=== PATIENT | female | born 1940 | race Caucasian/White ===

== ENCOUNTER 2023-11-28 10:41 | Inpatient (IN) | payer MEDICARE, BC, SELFPAY ==
[2023-11-24 12:45] VITALS: BP 140/129
[2023-11-24 12:49] VITALS: BMI 30.7
[2023-11-24 13:22] LABS: % Basophils 0.1 % (0-2); % Eosinophils 0.1 % (0-6); % Immature Granulocytes 0.6 % (0-0.5); % Lymphocytes 12.5 % (20.5-51.1); % Monocytes 7.9 % (1.7-9.3); % Neutrophils 78.8 % (42.2-75.2); Absolute Lymphocytes 0.9 10^3/uL (1.2-3.4); Absolute Monocytes 0.6 10^3/uL (0.1-0.6); Absolute Neutrophils 5.7 10^3/uL (1.4-6.5); Hematocrit 35.6 % (37.0-47.0); Hemoglobin 12.2 g/dL (12.0-16.0); Mean Corp Hgb Conc. 34.3 g/dL (33.0-37.0); Mean Corpuscular Hgb 33.7 pg (27.0-31.0); Mean Corpuscular Volume 98.3 fL (81.0-99.0); Nucleated Red Blood Cells % 0 %; Platelet Count 193 10^3/uL (130-400); Red Blood Cell Count 3.62 10^6/uL (4.20-5.40); Red Cell Dist. Width 12.9 % (11.5-14.5); White Blood Cell Count 7.2 10^3/uL (4.8-10.8)
[2023-11-24 13:26] VITALS: BP 148/66
[2023-11-24 13:28] LABS: ALT (SGPT) 29 U/L (0-35); AST (SGOT) 49 U/L (14-36); Albumin 3.7 g/dl (3.5-5.0); Alkaline Phosphatase 80 U/L (38-126); Blood Urea Nitrogen 25 mg/dl (7-17); Calcium 8.9 mg/dl (8.4-10.2); Carbon Dioxide 27 mmol/L (22-30); Chloride 105 mmol/L (98-107); Estimated Creatinine Clearance 75 ml/min; Glucose 146 mg/dl (70-99); Potassium 3.7 mmol/L (3.5-5.1); Sodium 139 mmol/L (135-145); Total Bilirubin 0.9 mg/dl (0.2-1.3); Total Protein 6.2 g/dl (6.3-8.2); eGFR > 60.00
[2023-11-24 13:31] LABS: Urine Albumin Trace (Neg - Trace); Urine Bilirubin Negative (Negative); Urine Character Clear (Clear); Urine Color Yellow; Urine Glucose Negative (Negative); Urine Ketone 3+ (Negative); Urine Leukocyte Negative (Negative); Urine Nitrite Negative (Negative); Urine Occult Blood Negative (Negative); Urine Urobilinogen Negative (Neg - 1+)
--- NOTE | 2023-11-24 13:32 | PHANOTE ---
med rec note- patient currently does not have any ecw or pharmacy fills.
[2023-11-24 14:00] VITALS: BP 153/48
--- NOTE | 2023-11-24 14:00 | ED.GENMED ---
History of Present Illness
General
Chief Complaint: Social Service Referral
Source: patient
Time Seen by Provider: 11/24/23 13:35
History of Present Illness
History of Present Illness:
83-year-old female presents to the emergency room via ambulance. Patient has been having frequent falls at home. She is here with her son. Son states the patient has been having a decline in mental acuity over the past several years. Patient
lives with her who is 90. He has been having difficulty caring for the patient because he is not strong enough to pick her up when she falls but also because she becomes combative and uncooperative with what he tries to do to help her. In
addition given his age he is having issues just taking care of himself. Patient offers no complaints. Ambulance states the house is in poor condition. The patient is extremely disheveled. She seems unaware that she has poor hygiene. Patient
denies having any falls.
Phy Exam
Physical Exam
Physical Exam:
General: Awake, Alert, Oriented X1. Clearly confused. Disheveled with her hair matted with what appears to be stool and dirt
Vitals: Afebrile, normotensive
Head: Atraumatic
Eyes: Pupils equal, EOMI
Throat: Airway intact, no exudates, dry mucosa
Neck: Trachea midline
Lungs: Clear and equal b/l
Heart: Regular rate, no murmurs
Abd: Soft, Nontender, No pulsatile mass
Neuro: Nonfocal
Skin: Warm, dry, no rash multiple abrasions and skin tears in various stages of healing
Extremities: pulses equal b/l, 1+ edema
Course
Orders/Labs/Results
Orders:
Orders
11/24/23 12:41
Electrocardiogram (*1) Urgent
Reason for Study: Fatigue / Weakness
EKG- Treatment ONCE
11/24/23 12:50
Complete Blood Count/With Diff Urgent
Comprehensive Metabolic Panel Urgent
Urinalysis Reflex To Culture Urgent
Date Specimen was Collected: 11/24/23
Time Specimen was Collected: 12:41
11/24/23 14:00
CT Head W/o Iv Contrast Urgent
Comment:
Reason For Exam: altered mental status
Case Management Consult ONCE
Case Management Consult: Discharge Planning
11/24/23 14:01
Knee, Left 4 or More Views [CR Knee - Left 4 Or More View*] Urgent
Comment:
Reason For Exam: pain from fall
11/24/23 15:32
Knee Immobilizer Left-Treatmen ONCE
11/24/23 15:36
Ankle, left 3 view CR [CR Ankle - Left Min 3 Views ] Urgent
Comment:
Reason For Exam: pain after a fall
Tibia/Fibula, Left 2 View [CR Leg Tibia/fibula Left 2 Vw] Urgent
Comment:
Reason For Exam: left knee and leg pain
Abnormal Lab Results
11/24/23
12:50
RBC 3.62 L 10^6/uL
(4.20-5.40)
Hct 35.6 L %
(37.0-47.0)
MCH 33.7 H pg
(27.0-31.0)
Absolute Lymphs (auto) 0.9 L 10^3/uL
(1.2-3.4)
Immature Gran % 0.6 H %
(0-0.5)
Neutrophils % 78.8 H %
(42.2-75.2)
Lymphocytes % 12.5 L %
(20.5-51.1)
BUN 25 H mg/dl
(7-17)
Glucose 146 H mg/dl
(70-99)
AST 49 H U/L
(14-36)
Total Protein 6.2 L g/dl
(6.3-8.2)
Urine Ketones 3+ A
(Negative)
11/24/23 12:50
11/24/23 12:50
Vital Signs
Initial and Last Documented VS:
Initial Vital Signs
Pulse Resp
86 14
11/24/23 12:41 11/24/23 12:41
Last Documented Vital Signs
Temp Pulse Resp BP Pulse Ox
98.3 F 77 16 151/68 96
11/24/23 12:45 11/24/23 15:45 11/24/23 15:45 11/24/23 15:00 11/24/23 15:45
MDM/Problems Addressed
Differential Diagnosis Includes:
Progression of dementia, urinary tract infection, hyponatremia, renal failure
MDM/Problems Addressed:
Patient presents very disheveled, confused. Neuroexam is nonfocal. Her labs did not show any real significant abnormalities. She is somewhat dry. Urine shows positive ketones but no evidence for urinary tract infection. CT of the head shows
atrophy. Patient was complaining of knee pain earlier but for me she denied any pain. Knee films were obtained for this reason which shows a proximal fibular fracture. Remaining views of the left lower extremity did not reveal any fracture.
Patient be placed in a knee immobilizer. She will require hospitalization as she is nonambulatory at this point with the knee immobilizer but also because she is unable to care for herself and her is no longer able to care for her. She
will need case management consultation for disposition planning
*Radiology
Radiology exam reviewed: preliminary read by ED provider (Proximal fibular fracture noted on my review of the patient's knee x-ray. Remaining tib-fib and ankle appear negative in my estimation) and radiology read reviewed (CT report)
*Pulse Oximetry
Patient hypoxic: no
*EKG
Interpreted by ED Provider?: Yes
Heart Rate: 85
Rate: normal
Rhythm: sinus
[place]: normal axis
Interval: normal interval
QRS Pattern: normal QRS
Ischemia: no ischemia
*Supervisor Packing Interpretation
Rate: normal
Interpretation: normal
Rhythm: sinus
*Critical Care Note
Total Time (30-74mins, 75-104mins- exclusive of procedures): Not Applicable
ED Attending Note
-
Portions of this chart may have been created with voice recognition software.� Occasional wrong word or��sound alike� substitutions may have occurred due to the inherent limitations of voice recognition software.
Discharge Plan
Departure
Patient Disposition: Admit
Date of Disposition: 11/24/23
Time of Disposition: 16:20
Admit to: Med/Surg
Presentation/result/management discussed w/ accepting MD/DO: Hospitalist
Condition: Fair
Discharge Problem:
Fracture of proximal end of fibula, Frequent falls, Acute confusion
Referrals:
Akira Orlando MD [Family Provider] -
Interventions
Interventions:
*Risk Screen - Suicide Last Done: 11/24/23 12:48
*General Assessment Last Done: 11/24/23 12:46
*Neglect/Abuse Screening Last Done: 11/24/23 12:48
ED- Fall Risk Assessment Last Done: 11/24/23 12:48
ED-Psychological Assessment Last Done: 11/24/23 12:51
Discharge Date and Time
Print Language: RUSSIAN
[2023-11-24 15:00] VITALS: BP 151/68
--- NOTE | 2023-11-24 16:17 | CM ---
CM following re: d/c planning.
Pt presents to ER after a fall.
pt is disheveled and situation at home is questionable.
CM met with pt, son Soren [phone] and his girlfriend at bedside.
Pt with matted hair.
She is able to converse with CM, appropriately so.
However, she states she walks with a walker, is able to shower herself, gets meals prepared, etc.
Later, son requested to see CM in the almaraz.
He states pt resides with spouse, who is 90 y/o. There is also his disabled sister in the home.
His father, he states, is the primary caregiver for both of them.
He states pt barely walks and is very sedentary. She does not take care of her hygiene needs.
He states father is trying to do it all, but overwhelmed.
Pt with dementia, son believes it is progressing.
He states his sister used to go to the program at [facility], but after COVID, it was shut down.
She also has a sedentary lifestyle.
He states he resides in the [facility], so he does not see his parents often.
He does state that pt is very difficult, uncooperative, and easily agitated, so they walk on eggshells around her.
He states she acts like everything is fine and becomes defensive when they tell her otherwise, or make suggestions.
She has not been to a doctor in a while.
He states his father called him today crying, as he is very overwhelmed.
CM acknowledged that it is a big step to bring her to the ER, as she did not want to come initially.
We spoke about pt being admitted (per MD), then likely could be placed in rehab.
We also talked about the waiver program. Pt gets SS, spouse receives SS and pension. Perhaps, they may qualify for waiver.
CM will continue to follow for d/c planning.
Goal: placement.
Of note, there is a son who lives locally, [place] [phone].
At this time, as there is no intentional abuse or neglect, no report made to APS.
CM will assist with dispo and caregiver support.
--- NOTE | 2023-11-24 17:40 | HPS.HSE ---
Family Physician
-
Family Physician: Akira Orlando
Chief Complaint
-
Fall, left fibular fracture, ambulatory dysfunction
History of Present Illness
This is an 83-year-old female with past medical history of hypertension and dementia who presents to the emergency department after suffering a fall at home and found to have a nondisplaced left fibular fracture.
Patient unable to provide any history. She is sleeping at the time of interview. Family reports a history of progressive dementia and intermittent agitation and combativeness. They only reported history of hypertension. They report that over the
last few years the patient has been suffering from multiple falls and in recent weeks has had several falls occurring per week. The patient lives with spouse who is 90 years old and is unable to care for her. She is found disheveled with matted he
had COVID in stool. Patient seems to be incapable of understanding the condition. When she follows she cannot be helped by spouse. There to other family members who also hold her and unable to help with transfers. Patient has refused
hospitalizations and medical care in the past. Last contact with healthcare providers was during COVID and having the COVID vaccination.
In the ED today she was normotensive with a blood pressure of 151/68 pulse of 77 respiratory of 16 and she was satting 98% on room air. She was afebrile. ECG showed normal sinus rhythm at a rate of [address] of the head was
unremarkable. X-ray of the left knee shows the nondisplaced oblique fracture of the proximal fibular metaphysis and diaphysis. CBC was unremarkable with no leukocytosis and a hemoglobin of 12 normal platelet count. Electrolytes are all within
normal limits. Blood glucose was normal. UA showed 3+ ketones but otherwise unremarkable.
Patient was evaluated by care management with plans for SNF. Unfortunately this cannot be accomplished during the current day and patient was referred for admission.
Medical History
Past Medical History
Past Medical History: Reports Dementia and HTN
Past Surgical History: Reports None
Social History
Unable to obtain full social history at this time due to: Dementia
Tobacco: Non-smoker
Alcohol: None
Drug: None
Personal:
Living: With Family
Employment: Retired
Family History
Family History: Not pertinent
Allergies / Home Medications
Allergies reflects when Allergies were last updated in [facility].
Home Medications with original date entered in [facility]
Allergy/Medication List:
Allergies
Allergy/AdvReac Type Severity Reaction Status Date / Time
No Known Allergies Allergy Unverified 11/24/23 13:23
If medication reconciliation has not been performed, why?: Dementia and Medication List N/A
Review of Systems
-
Unable to obtain full review of systems at this time due to: Dementia
History Source: Family
Constitutional: Reports No Symptoms
EENT: Reports No Symptoms
Respiratory: Reports No Symptoms
Cardiac: Reports No Symptoms
Abdomen/GI: Reports No Symptoms
: Reports No Symptoms
Musculoskeletal: Reports No Symptoms
Skin: Reports No Symptoms
Neurological: Reports No Symptoms
Endocrine: Reports No Symptoms
Hematologic/Lymphatic: Reports No Symptoms
Psych: Reports No Symptoms
Physical Exam
Vital Signs
Vital Signs
Temp Pulse Resp BP Pulse Ox
98.3 F 77 16 151/68 96
11/24/23 12:45 11/24/23 15:45 11/24/23 15:45 11/24/23 15:00 11/24/23 15:45
Physical Exam
General: No Apparent Distress
HEENT: NormoCephalic, Anicteric, Moist mucous membranes, Atraumatic and PERRLA
Respiratory: Clear
Cardiac: S1/S2 and Regular Rhythm
Breast: Deferred by me
GI: Soft, Non Tender and Non Distended
Rectal: Deferred by Provider
Genito-urinary: Deferred by me
Musculoskeletal: No Clubbing, No Cyanosis and No Edema
Skin: Dry
Neuro: Nonfocal/grossly intact, Sedated and Other (sleepy but arousable. )
Hematologic/Lymphatic: No Lymphadenopathy
Psych: Calm
Laboratory Results
-
11/24/23 12:50
11/24/23 12:50
Laboratory Results
Total Bilirubin 0.9 mg/dl (0.2-1.3) 11/24/23 12:50
AST 49 U/L (14-36) H 11/24/23 12:50
ALT 29 U/L (0-35) 11/24/23 12:50
Alkaline Phosphatase 80 U/L (38-126) 11/24/23 12:50
Data Reviewed
-
Diagnostic Radiology: Image Personally Visualized and interpreted
CT Scan: Report Reviewed by me
Medical Tests (Nuc Med, Echo, EKG etc): Image Personally Visualized and interpreted
Lab Data: Labs Reviewed by me
Impression/Plan
-
IMPRESSION:
PLAN:
1. Left Fibular Fracture - H/O multiple falls at home. Ambulatory dysfunction. Left fibular fracture, non-displaced, uncertain duration.
- admit to obs
- pain control
- no indication for surgery
- knee immobilization
- PT and eval for weight bearing
- case management consult.
2. HTN -
- continue atenolol 50 daily
3. Dementia - progressive dementia with behavioral changes and no insight.
- outpatient neuro, may need dementia unit
- gentle redirection found to be effective per family
- monitor for delirium
DVT PPX - lovenox sq
Code status - Full Code. Family to discuss with spouse who cannot communicate over the phone then determine if this needs to change.
--- NOTE | 2023-11-24 20:50 | PTCARENOTE ---
Pt received from ED via stretcher. Pulled over to bed x4 without incident. AAOx1, forgetful/anxious/agitated with care. Disheveled unkempt appearance, long shoulder length hair severely matted, necklace and earrings caked. Unable to participate
in admission questions and pt's Soren already left. Physical assessment completed (refer to worklist). LLE immobilizer in place. Static overlay and bed alarm placed. MASD noted to bilateral breasts, groin. Miconazole powder ordered per wound
protocol. Call belcher within reach, instructed on use. Plan of care ongoing.
[2023-11-24] MEDS: LOVENOX 40 MG SC (22:30)
[2023-11-24 22:40] VITALS: BP 153/96
--- NOTE | 2023-11-24 23:50 | PTCARENOTE ---
Phone call placed to patient's and son. No answer at either number. Pt's son Soren returned call. Discussed cutting mother's hair as attempts to cleanse impossible. Pt reports washing hair and bathing independently Soren verbally
consented to allowing myself to cut mother's hair. Consent witnessed by Bia Ordoñez RN. Scow Captain made aware that verbal consent obtained. Pt's son expressed gratitude repeatedly.
Pt given complete bed bath, hair cut short and washed x2. Necklace and earrings removed and soaked. Sacral foam placed, bilateral heel foams placed. Pt thankful for all care provided.
[2023-11-25 03:20] VITALS: BP 148/86
[2023-11-25 07:00] VITALS: BP 135/87
--- NOTE | 2023-11-25 07:33 | W.PN.HOSP.TC ---
Today's Communication/Plan
-
knee immobilization
pain control, avoid opiates
PT/OT
discharge planning SNF rehab
Assessment / Plan
Assessment / Plan
Physical Exam
General: No Apparent Distress
HEENT: NormoCephalic, Anicteric, Moist mucous membranes, Atraumatic and PERRLA Hard of Hearing
Respiratory: Clear
Cardiac: S1/S2 and Regular Rhythm
GI: Soft, Non Tender and Non Distended
Musculoskeletal: No Clubbing, No Cyanosis and No Edema
Skin: Dry
Neuro: Awake alert conversant
Hematologic/Lymphatic: No Lymphadenopathy
Psych: Calm
83F HTN Dementia Falls here w/ left fibular fx
# Left acute nondisplaced oblique fracture proximal metaphysis and diaphysis of the fibula
- H/O multiple falls at home. Ambulatory dysfunction
- pain control
- Ortho eval appreciated outpt ortho follow up Ortho 4 wks for repeat X-rays, knee immobilization, WBAT as tolerated
- PT/OT eval appreciated SNF rehab
- case management consult.
# HTN -
- continue atenolol 50 daily
# Dementia - progressive dementia with behavioral changes and no insight.
- outpatient neuro, may need dementia unit
- gentle redirection found to be effective per family
- monitor for delirium
DVT PPX - lovenox sq
Full Code
I spent a total of 40 minutes with the patient or on the floor. More than 50% of this time involved counseling and coordination of care.
Anticipated Discharge: 24 - 48 hours
Subjective/Interval History
-
Date of Service: November 25, 2023
Calm pleasant. no acute distress. Appears comfortable at this time. Hard of hearing
Objective Data
-
Vital Signs:
Vital Signs
Temp Pulse Resp BP Pulse Ox
98.2 F 112 17 148/86 93
11/25/23 03:20 07/22/24 03:20 11/25/23 03:20 11/25/23 03:20 11/25/23 03:20
I&O
11/24/23 11/25/23 11/26/23
06:59 06:59 06:59
Intake Total 100 / 100
Balance 100 / 100
--- NOTE | 2023-11-25 08:50 | CON.ORTHO ---
Consultation
-
Date/Time Consultation Requested: November 26/0717
Date/Time Consultation Performed: November 26/0800
Requesting Provider: Jeremy
Performing Provider: Lizabeth Hood
Reason for Consultation: Left fibula fracture
Consultation - Orthopedics
History
Dictation#[id number]
Asked to see this pleasant 83-year-old white female with a PMH of dementia and HTN who reportedly suffers from frequent falls at home. She lives with her 90-year-old who is her fur remodeler, as well as a fur remodeler for their disabled daughter.
Per family he has been overwhelmed and struggling recently with his caretaking responsibilities. Per EMS the house is in poor condition. Patient is disheveled. She presented through the ER after a fall and x-rays confirmed a nondisplaced left
proximal fibula fracture. X-rays of the ankle were negative. She was placed in a knee immobilizer. She has been admitted to the hospitalist service and we have been requested in consultation due to her fracture. Did not offer significantly
helpful answers to questions at the time of visit
Allergies / Home Medications
Allergy/AdvReac Type Severity Reaction Status Date / Time
No Known Allergies Allergy Unverified 11/24/23 13:23
Vital Signs / Lab Results
Temp Pulse Resp BP Pulse Ox
98.5 F 114 18 135/87 98
11/25/23 07:00 11/25/23 07:00 11/25/23 07:00 11/25/23 07:00 11/25/23 07:00
11/24/23 12:50
11/24/23 12:50
Assessment / Plan
PE: Afeb. In bed. KI in place LLE. Skin intact. Mild edema. Focal tenderness over the proximal fibula. no pain over the proximal tibia and does not endorse any pain to palpation of the knee. Evaluation of the ankle revealed no medial or lateral
pain, over the ligaments of the malleoli. no pain over the tib-fib ligament. and no pain over the syndesmosis. No pain over the Achilles. Ankle ranges well without significant pain. Calf is soft and nontender. DNGUILLE HUNTERE
Xrays: Nondisplaced left proximal fibula fracture. x-rays of the ankle without fracture or any other acute abnormality. No widening of the medial clear space.
Impression: LEFT proximal fibula fracture
Plan: I did discuss with the patient, but will also place a call to family, specifically her son, Soren. She seems to be more comfortable in the KI. we will continue with the KI. She may be WBAT with a walker/crutches, although walker probably
safer. While in bed the immobilizer may be loosened to elevate and ice, if tolerable. Avoid narcotics, please. PT/OT would be helpful during this admission. I would anticipate a D/c to SNF when medically optimized- appreciate CM. Recommend an
outpatient orthopedic follow-up in 4 weeks for x-rays. Orthopedics to sign off for now. Please reengage with any pertinent questions during the remainder of her admission, if necessary
[2023-11-25] MEDS: TYLENOL 650 MG PO (09:15)
[2023-11-25] MEDS: TENORMIN 50 MG PO (09:15)
[2023-11-25] MEDS: DESENEX/MITRAZOL/ZEASORB 1 APPLIC TOPICAL ×2 (09:16→20:34)
--- NOTE | 2023-11-25 10:00 | PTCARENOTE ---
pt awake oriented to self. follows commands yells out in pain when turned. pain med given. sacral foam in place. LLE immobilizer on pt. pulses present.
[2023-11-25 10:14] VITALS: BP 136/90; PULSE 107
[2023-11-25 15:00] VITALS: BP 124/53
[2023-11-25] MEDS: LOVENOX 40 MG SC (17:30)
[2023-11-25 23:00] VITALS: BP 112/94
[2023-11-26 06:00] VITALS: BMI 30.7
--- NOTE | 2023-11-26 07:10 | W.PN.HOSP.TC ---
Today's Communication/Plan
-
Medically stable for discharge pending SNF placement
cont PT/OT
Fall precautions
Assessment / Plan
Assessment / Plan
Physical Exam
General: No Apparent Distress
HEENT: NormoCephalic, Anicteric, Moist mucous membranes, Atraumatic and PERRLA Hard of Hearing
Respiratory: Clear
Cardiac: S1/S2 and Regular Rhythm
GI: Soft, Non Tender and Non Distended
Musculoskeletal: No Clubbing, No Cyanosis and No Edema
Skin: Dry
Neuro: AOx3 slow cognition
Hematologic/Lymphatic: No Lymphadenopathy
Psych: Calm
83F HTN Dementia Falls here w/ left fibular fx
# Left acute nondisplaced oblique fracture proximal metaphysis and diaphysis of the fibula
- H/O multiple falls at home. Ambulatory dysfunction
- pain control
- Ortho eval appreciated outpt ortho follow up Ortho 4 wks for repeat X-rays, knee immobilization, WBAT as tolerated
- PT/OT eval appreciated SNF rehab
- case management consult.
# HTN -
- continue atenolol 50 daily
# Dementia - progressive dementia with behavioral changes and no insight.
- outpatient neuro, may need dementia unit
- gentle redirection found to be effective per family
- monitor for delirium
DVT PPX - lovenox sq
Full Code
discussed with patient's son Soren over phone
I spent a total of 35 minutes with the patient or on the floor. More than 50% of this time involved counseling and coordination of care.
Anticipated Discharge: 24 - 48 hours
Subjective/Interval History
-
Date of Service: November 26, 2023
No acute distress. Calm pleasant at time of evaluation. AOx3 though cognition is slow.
Objective Data
-
Vital Signs:
Vital Signs
Temp Pulse Resp BP Pulse Ox
98.1 F 86 16 112/94 97
11/25/23 23:00 11/25/23 23:00 11/25/23 23:00 11/25/23 23:00 11/25/23 23:00
I&O
11/25/23 11/26/23 11/27/23
06:59 06:59 06:59
Intake Total 100 / 100
Balance 100 / 100
[2023-11-26 08:03] VITALS: BP 158/80
[2023-11-26] MEDS: DESENEX/MITRAZOL/ZEASORB 1 APPLIC TOPICAL ×2 (08:26→21:40)
[2023-11-26] MEDS: TENORMIN 50 MG PO (08:31)
[2023-11-26] MEDS: TYLENOL 650 MG PO (08:32)
--- NOTE | 2023-11-26 10:50 | PTCARENOTE ---
pt oriented to self. confused agitated she can not go home. does not understand current condition. left leg immobilizer in place. pulses present. room air.
[2023-11-26 12:08] VITALS: BP 134/85; PULSE 94; O2SAT 95
[2023-11-26 12:32] VITALS: BP 134/85; PULSE 94; O2SAT 95
--- NOTE | 2023-11-26 12:59 | PTCARENOTE ---
pt increasingly agitated. yelling out for family. wants to get out of bed to leave. unable to reorient pt. she insists she is leaving and does not have a broken leg. states she has no pain. comfort measures offered
[2023-11-26 15:00] VITALS: BP 158/69
--- NOTE | 2023-11-26 15:00 | CM ---
Spoke with pts to complete initial assessment
Pt lives at home with her and daughter in a split-level home
Per pt is forgetful. Feeds self, assist with adl's, ambulates without device and manages steps without difficulty
DME - none
SNF/HH - denies past hx
PCP - Dr Mann Orlando
Pharm - [facility]
Discussed [facility]
Discussed SNF/d/c planning - no preferences - 'Something near [place]'
Will send referral in [facility]
Plan - anticipate SNF at d/c will need auth
[2023-11-26] MEDS: LOVENOX 40 MG SC (18:01)
[2023-11-26 23:12] VITALS: BP 120/78
[2023-11-27 06:00] VITALS: BMI 30.5
[2023-11-27 07:00] VITALS: BP 170/79
--- NOTE | 2023-11-27 07:53 | W.PN.HOSP.TC ---
Today's Communication/Plan
-
Medically stable for discharge pending SNF placement
Assessment / Plan
Assessment / Plan
Physical Exam
General: No Apparent Distress
HEENT: NormoCephalic, Anicteric, Moist mucous membranes, Atraumatic and PERRLA Hard of Hearing
Respiratory: Clear
Cardiac: S1/S2 and Regular Rhythm
GI: Soft, Non Tender and Non Distended
Musculoskeletal: No Clubbing, No Cyanosis and No Edema
Skin: Dry
Neuro: AOx3 slow cognition
Hematologic/Lymphatic: No Lymphadenopathy
Psych: Calm
83F HTN Dementia Falls here w/ left fibular fx
# Left acute nondisplaced oblique fracture proximal metaphysis and diaphysis of the fibula
- H/O multiple falls at home. Ambulatory dysfunction
- pain control
- Ortho eval appreciated outpt ortho follow up Ortho 4 wks for repeat X-rays, knee immobilization, WBAT as tolerated
- PT/OT eval appreciated SNF rehab
- case management consult.
# HTN -
- continue atenolol 50 daily
# Dementia - progressive dementia with behavioral changes and no insight.
- outpatient neuro, may need dementia unit
- gentle redirection found to be effective per family
- monitor for delirium
DVT PPX - lovenox sq
Full Code
discussed with patient's son Soren over phone
I spent a total of 35 minutes with the patient or on the floor. More than 50% of this time involved counseling and coordination of care.
Anticipated Discharge: 24 - 48 hours
Subjective/Interval History
-
Date of Service: November 27, 2023
no acute distress comfortable calm pleasant
Objective Data
-
Vital Signs:
Vital Signs
Temp Pulse Resp BP Pulse Ox
98.9 F 81 18 120/78 94
11/26/23 23:12 11/26/23 23:12 11/26/23 23:12 11/26/23 23:12 11/26/23 23:12
I&O
11/26/23 11/27/23 11/28/23
06:59 06:59 06:59
Intake Total 360 / 360
Balance 360 / 360
[2023-11-27] MEDS: TENORMIN 50 MG PO (08:33)
[2023-11-27] MEDS: DESENEX/MITRAZOL/ZEASORB 1 APPLIC TOPICAL ×2 (08:34→20:16)
--- NOTE | 2023-11-27 13:34 | CM ---
Addendum entered by Maria Luisa Covington 11/27/23 15:33:
Met with son Jose Ramon and his SO at bedside. Updated on accepting facilities. Son reports he will share info with his father. Given list of facilities from [employer]. Encouraged to call/look at some facilities. Given CM phone number.
CM will follow up with son tomorrow.
Plan - SNF when bed obtained
Original Note:
Case management following for d/c planning
Chart reviewed
Pending placement - referrals sent
Plan - SNF when bed obtained
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
[2023-11-27] MEDS: LOVENOX 40 MG SC (17:11)
[2023-11-28 03:00] VITALS: BP 123/75
[2023-11-28 06:00] VITALS: BMI 30.4
--- NOTE | 2023-11-28 07:52 | W.PN.HOSP.TC ---
Today's Communication/Plan
-
Medically stable for discharge pending SNF rehab placement
Assessment / Plan
Assessment / Plan
Physical Exam
General: No Apparent Distress
HEENT: NormoCephalic, Anicteric, Moist mucous membranes, Atraumatic and PERRLA Hard of Hearing
Respiratory: Clear
Cardiac: S1/S2 and Regular Rhythm
GI: Soft, Non Tender and Non Distended
Musculoskeletal: No Clubbing, No Cyanosis and No Edema
Skin: Dry
Neuro: AOx3 slow cognition, memory issues noted
Hematologic/Lymphatic: No Lymphadenopathy
Psych: Calm
83F HTN Dementia Falls here w/ left fibular fx
# Left acute nondisplaced oblique fracture proximal metaphysis and diaphysis of the fibula
- H/O multiple falls at home. Ambulatory dysfunction
- pain control
- Ortho eval appreciated outpt ortho follow up Ortho 4 wks for repeat X-rays, knee immobilization, WBAT as tolerated
- PT/OT eval appreciated SNF rehab
- case management consult appreciated
# HTN -
- continue atenolol 50 daily
# Dementia - progressive dementia with behavioral changes and no insight.
- outpatient neuro, may need dementia unit
- gentle redirection found to be effective per family
- monitor for delirium
DVT PPX - lovenox sq
Full Code
I spent a total of 35 minutes with the patient or on the floor. More than 50% of this time involved counseling and coordination of care.
Anticipated Discharge: Within 24 hours
Subjective/Interval History
-
Date of Service: November 28, 2023
calm conversant has memory issues but largely pleasant and cooperative.
Objective Data
-
Vital Signs:
Vital Signs
Temp Pulse Resp BP Pulse Ox
98.5 F 85 18 123/75 99
11/28/23 03:00 11/28/23 03:00 11/28/23 03:00 11/28/23 03:00 11/28/23 03:00
I&O
11/27/23 11/28/23 11/29/23
06:59 06:59 06:59
Intake Total 360 / 360 500 / 500
Balance 360 / 360 500 / 500
[2023-11-28 07:54] VITALS: BP 162/78
[2023-11-28] MEDS: DESENEX/MITRAZOL/ZEASORB 1 APPLIC TOPICAL ×2 (08:45→19:54)
[2023-11-28] MEDS: TENORMIN 50 MG PO (08:45)
--- NOTE | 2023-11-28 10:09 | CM ---
Addendum entered by Maria Luisa Covington 11/28/23 15:14:
Received call from pts son - family would like to have pt got to [facility] for SNF
Messaged Mary at [facility] - can accept over weekend
Plan - anticipate transfer to [facility] when bed available
Original Note:
Case management following for d/c planning
Received call from pts son
Given update of accepting facilities
Reports he has been calling facilities and will notify CM of choices today
Plan - anticipate transfer to snf when facility and auth obtained
[2023-11-28 10:12] VITALS: BP 126/69; PULSE 78; O2SAT 99
[2023-11-28 15:38] VITALS: BP 159/102
[2023-11-28 16:15] VITALS: BP 152/81
[2023-11-28] MEDS: LOVENOX 40 MG SC (17:15)
[2023-11-28 23:21] VITALS: BP 157/93
[2023-11-29] MEDS: MOTRIN 400 MG PO (03:04)
[2023-11-29 06:00] VITALS: BMI 30.3
--- NOTE | 2023-11-29 07:06 | W.PN.HOSP.TC ---
Today's Communication/Plan
-
Medically stable for discharge pending SNF rehab placement insurance auth
Assessment / Plan
Assessment / Plan
Physical Exam
General: No Apparent Distress
HEENT: NormoCephalic, Anicteric, Moist mucous membranes, Atraumatic and PERRLA Hard of Hearing
Respiratory: Clear
Cardiac: S1/S2 and Regular Rhythm
GI: Soft, Non Tender and Non Distended
Musculoskeletal: No Clubbing, No Cyanosis and No Edema
Skin: Dry
Neuro: AOx3 slow cognition, memory issues noted
Hematologic/Lymphatic: No Lymphadenopathy
Psych: Calm
83F HTN Dementia Falls here w/ left fibular fx
# Left acute nondisplaced oblique fracture proximal metaphysis and diaphysis of the fibula
- H/O multiple falls at home. Ambulatory dysfunction
- pain control
- Ortho eval appreciated outpt ortho follow up Ortho 4 wks for repeat X-rays, knee immobilization, WBAT as tolerated
- PT/OT eval appreciated SNF rehab
- case management consult appreciated
# HTN -
- continue atenolol 50 daily
-25 mg Atenolol QPM added
# Dementia - progressive dementia with behavioral changes and no insight.
- outpatient neuro, may need dementia unit
- gentle redirection found to be effective per family
- monitor for delirium
#Mild Hyponatremia
Fluid restriction
DVT PPX - lovenox sq
Full Code
I spent a total of 35 minutes with the patient or on the floor. More than 50% of this time involved counseling and coordination of care.
Anticipated Discharge: Within 24 hours
Subjective/Interval History
-
Date of Service: November 29, 2023
no acute distress. Reports feeling tired otherwise appears comfortable at this time.
Objective Data
-
Vital Signs:
Vital Signs
Temp Pulse Resp BP Pulse Ox
98.6 F 114 20 157/93 98
11/28/23 23:21 11/28/23 23:21 11/28/23 23:21 11/28/23 23:21 11/28/23 23:21
I&O
11/28/23 11/29/23 11/30/23
06:59 06:59 06:59
Intake Total 500 / 500 900 / 900
Balance 500 / 500 900 / 900
[2023-11-29 08:39] LABS: Hematocrit 30.7 % (37.0-47.0); Mean Corp Hgb Conc. 35.8 g/dL (33.0-37.0); Mean Corpuscular Volume 92.2 fL (81.0-99.0); Mean Platelet Volume 8.4 fL (7.4-10.4); Platelet Count 221 10^3/uL (130-400); Red Blood Cell Count 3.33 10^6/uL (4.20-5.40); Red Cell Dist. Width 12.6 % (11.5-14.5); White Blood Cell Count 7.7 10^3/uL (4.8-10.8)
[2023-11-29] MEDS: DESENEX/MITRAZOL/ZEASORB 1 APPLIC TOPICAL ×2 (08:45→20:29)
[2023-11-29] MEDS: TENORMIN 50 MG PO (08:46)
[2023-11-29 09:05] VITALS: BP 141/71
[2023-11-29 09:24] LABS: ALT (SGPT) 24 U/L (0-35); AST (SGOT) 36 U/L (14-36); Albumin 2.7 g/dl (3.5-5.0); Alkaline Phosphatase 78 U/L (38-126); Blood Urea Nitrogen 12 mg/dl (7-17); Calcium 8.4 mg/dl (8.4-10.2); Carbon Dioxide 30 mmol/L (22-30); Chloride 97 mmol/L (98-107); Estimated Creatinine Clearance 74 ml/min; Glucose 121 mg/dl (70-99); Magnesium 1.8 mg/dl (1.6-2.3); Phosphorus 4.1 mg/dl (2.5-4.5); Potassium 3.8 mmol/L (3.5-5.1); Sodium 130 mmol/L (135-145); Total Bilirubin 0.7 mg/dl (0.2-1.3); eGFR > 60.00
--- NOTE | 2023-11-29 10:47 | PN.CDI ---
CDI
- -
CDI:
Physician Documentation Request
Admit Date: 11/28/23 10:41
Dear Doctor Jeremy
Please review the following and provide your response in the progress notes.
Clinical Indicators:
Laboratory Tests
11/24/23 11/29/23
12:50 08:31
Sodium 139 130 L
Based on the above and your clinical assessment, please clarify in the progress notes, the appropriate diagnosis, if significant, that supports the above abnormalities and additional evaluation, monitoring and/or treatment rendered:
Hyponatremia
Abnormal lab value, clinically insignificant
Other(please specify)
Use of terms such as suspected, likely, concern for, or probable (associated with a specific diagnosis that is being evaluated, monitored, or treated as if it exists) are acceptable and can be coded in the inpatient setting, when documented at the
time of discharge.
Thank you,
Obdulia Bingham RN BSN CCDS
CDI Specialist
Please contact via tiger text
Please use your independent medical judgment in providing your response.
--- NOTE | 2023-11-29 11:05 | PN.CDI ---
CDI
- -
CDI:
Physician Documentation Request
Admit Date: 11/28/23 10:41
Dear Doctor Jeremy,
Please review the following and provide your response in the progress notes.
Clinical Indicators:
11/23 Exams: CR Knee - Left
#Acute nondisplaced oblique fracture of the proximal fibular metaphysis and diaphysis
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
PN, 11/27
# Left acute nondisplaced oblique fracture proximal metaphysis and diaphysis of the fibula
#...- H/O multiple falls at home.
#...Ambulatory dysfunction
# Dementia - progressive dementia with behavioral changes and no insight.
Please clarify the following regarding the etiology of the left fibula fracture:
Multifactorial due to trauma and age related osteoporosis
Traumatic fracture/Fall only
Other(please specify)
Type Fracture
Age-related With current pathological fx
Drug induced (specify drug) without current pathological fx
Idiopathic
Osteoporosis of disuse
Post traumatic
Use of terms such as suspected, likely, concern for, or probable (associated with a specific diagnosis that is being evaluated, monitored, or treated as if it exists) are acceptable and can be coded in the inpatient setting, when documented at the
time of discharge.
Thank you,
Obdulia Bingham RN BSN CCDS
CDI Specialist
please contact via tiger text
Please use your independent medical judgment in providing your response.
--- NOTE | 2023-11-29 12:27 | CM ---
Case Management following for d/c planning
Chart reviewed
Accepted to [facility] - can admit over - Saturday
Weekend coverage - [facility] [phone]
Plan - Anticipate transfer to [facility] over weekend
[2023-11-29 12:34] VITALS: BP 128/52; PULSE 75; O2SAT 97
[2023-11-29 13:36] VITALS: BP 128/52; PULSE 72; O2SAT 97
[2023-11-29 15:24] VITALS: BP 131/67
[2023-11-29] MEDS: LOVENOX 40 MG SC (17:04)
[2023-11-29] MEDS: TENORMIN 25 MG PO (17:05)
[2023-11-29 23:54] VITALS: BP 125/69
--- NOTE | 2023-11-30 07:38 | W.PN.HOSP.TC ---
Addendum entered and electronically signed by Angel Luna MD 12/01/23 07:30:
left fibula fracture Multifactorial due to trauma and age related osteoporosis
Original Note:
Today's Communication/Plan
-
Medically stable for discharge SNF rehab pending insurance auth
Assessment / Plan
Assessment / Plan
Physical Exam
General: No Apparent Distress
HEENT: NormoCephalic, Anicteric, Moist mucous membranes, Atraumatic and PERRLA Hard of Hearing
Respiratory: Clear
Cardiac: S1/S2 and Regular Rhythm
GI: Soft, Non Tender and Non Distended
Musculoskeletal: No Clubbing, No Cyanosis and No Edema
Skin: Dry
Neuro: AOx3 slow cognition, memory issues noted
Hematologic/Lymphatic: No Lymphadenopathy
Psych: Calm
83F HTN Dementia Falls here w/ left fibular fx
# Left acute nondisplaced oblique fracture proximal metaphysis and diaphysis of the fibula
- H/O multiple falls at home. Ambulatory dysfunction
- pain control
- Ortho eval appreciated outpt ortho follow up Ortho 4 wks for repeat X-rays, knee immobilization, WBAT as tolerated
- PT/OT eval appreciated SNF rehab
- case management consult appreciated
# HTN -
- continue atenolol 50 daily
-25 mg Atenolol QPM added
# Dementia - progressive dementia with behavioral changes and no insight.
- outpatient neuro, may need dementia unit
- gentle redirection found to be effective per family
- monitor for delirium
#Mild Hyponatremia
Fluid restriction
DVT PPX - lovenox sq
Full Code
I spent a total of 35 minutes with the patient or on the floor. More than 50% of this time involved counseling and coordination of care.
Anticipated Discharge: Within 24 hours
Subjective/Interval History
-
Date of Service: November 30, 2023
no acute distress. appears comfortable
Objective Data
-
Labs:
Laboratory Results
11/30/23
07:21
Sodium Pending
Potassium Pending
Chloride Pending
Carbon Dioxide Pending
BUN Pending
Creatinine Pending
Glucose Pending
Calcium Pending
Vital Signs:
Vital Signs
Temp Pulse Resp BP Pulse Ox
98.1 F 84 18 125/69 99
11/29/23 23:54 11/29/23 23:54 11/29/23 23:54 11/29/23 23:54 11/29/23 23:54
I&O
11/29/23 11/30/23 12/01/23
06:59 06:59 06:59
Intake Total 900 / 900 1070 / 1070
Balance 900 / 900 1070 / 1070
[2023-11-30 07:45] VITALS: BP 150/75
[2023-11-30 08:33] LABS: Blood Urea Nitrogen 13 mg/dl (7-17); Calcium 8.4 mg/dl (8.4-10.2); Carbon Dioxide 30 mmol/L (22-30); Chloride 99 mmol/L (98-107); Estimated Creatinine Clearance 74 ml/min; Glucose 114 mg/dl (70-99); Iron 42 ug/dl (37-170); Sodium 133 mmol/L (135-145); eGFR > 60.00
[2023-11-30 08:43] LABS: Percent Saturation 26 % (20-50); Total Iron Binding Capacity 160 ug/dl (265-497)
[2023-11-30 09:04] LABS: TSH Reflex To Free T4 1.98 uIU/ml (0.47-4.68)
[2023-11-30 09:39] LABS: Folate > 20.0 ng/ml (2.76-20); Vitamin B12 947 pg/ml (239-931)
[2023-11-30] MEDS: DESENEX/MITRAZOL/ZEASORB 1 APPLIC TOPICAL ×2 (09:42→20:21)
[2023-11-30] MEDS: TENORMIN 50 MG PO (09:44)
[2023-11-30] MEDS: TYLENOL 650 MG PO (14:03)
[2023-11-30 15:28] VITALS: BP 129/67
[2023-11-30] MEDS: LOVENOX 40 MG SC (17:16)
[2023-11-30] MEDS: TENORMIN 25 MG PO (17:16)
[2023-11-30] MEDS: MOTRIN 400 MG PO (20:26)
[2023-11-30 23:54] VITALS: BP 131/68
[2023-12-01 07:00] VITALS: BP 142/75
--- NOTE | 2023-12-01 07:18 | W.PN.HOSP.TC ---
Today's Communication/Plan
-
discharge
Assessment / Plan
Assessment / Plan
Physical Exam
General: No Apparent Distress
HEENT: NormoCephalic, Anicteric, Moist mucous membranes, Atraumatic and PERRLA Hard of Hearing
Respiratory: Clear
Cardiac: S1/S2 and Regular Rhythm
GI: Soft, Non Tender and Non Distended
Musculoskeletal: No Clubbing, No Cyanosis and No Edema
Skin: Dry
Neuro: AOx3 slow cognition, memory issues noted
Hematologic/Lymphatic: No Lymphadenopathy
Psych: Calm
83F HTN Dementia Falls here w/ left fibular fx
# Left acute nondisplaced oblique fracture proximal metaphysis and diaphysis of the fibula
- Multifactorial due to trauma and age related osteoporosis
- H/O multiple falls at home. Ambulatory dysfunction
- pain control
Ortho eval appreciated
-outpt ortho follow up Ortho 4 wks for repeat X-rays, knee immobilization, WBAT as tolerated w/ walker
-while in bed immobilizer may be loosened to elevate and ice if intolerable
PT/OT eval appreciated SNF rehab
case management consult appreciated
# HTN -
- continue atenolol 50 daily
-25 mg Atenolol QPM added, continue
# Dementia - progressive dementia with behavioral changes and no insight.
- outpatient neuro, may need dementia unit
- gentle redirection found to be effective per family
- monitor for delirium
#Mild Hyponatremia
improved with mild Fluid restriction, continue
DVT PPX - lovenox sq
Full Code
Medically stable for discharge SNF rehab with outpatient follow up recommendations
Discussed with patient and patient's son Soren.
Total Time Preparing Discharge ___40____ minutes including examination of the patient, summary of the hospital stay, instructions for continuing care to all relevant caregivers; and preparation of discharge records, prescriptions, and referral
forms if necessary.
Anticipated Discharge: Today
Subjective/Interval History
-
Date of Service: December 01, 2023
Calm pleasant no acute distress appears comfortable at this time.
Objective Data
-
Vital Signs:
Vital Signs
Temp Pulse Resp BP Pulse Ox
97.6 F 99 18 131/68 96
11/30/23 23:54 11/30/23 23:54 11/30/23 23:54 11/30/23 23:54 11/30/23 23:54
I&O
11/30/23 12/01/23 12/02/23
06:59 06:59 06:59
Intake Total 1070 / 1070 1320 / 1320
Balance 1070 / 1070 1320 / 1320
[2023-12-01] MEDS: MOTRIN 400 MG PO ×2 (08:30→15:29)
[2023-12-01] MEDS: TENORMIN 50 MG PO (08:38)
[2023-12-01] MEDS: DESENEX/MITRAZOL/ZEASORB 1 APPLIC TOPICAL (09:47)
--- NOTE | 2023-12-01 11:50 | CM ---
Addendum entered by MAGGIE Walker 12/01/23 12:51:
IMM completed and on chart. P/U time 16:45. Placed a call to patient's kathi Albright, to update.
He is agreeable to time.
Original Note:
Reviewed chart, spoke with attending who confirmed that patient is medically stable for discharge today. Placed a call to [facility] and spoke with Arlette who stated that they are ready for patient to transfer and anytime in the afternoon is good
for them to accept.
# For Report [phone] ext [phone]
# For
Will complete medical necessity for transport and transfer sheet.
Plan: Case management will continue to follow and assist with discharge planning. [facility].
--- NOTE | 2023-12-01 12:39 | W.DCSUMMARY ---
Discharge Summary
Discharge Data
Date of Admission: 11/28/23
Date of Discharge: 12/01/23
-
Pending Results: No
Discharge Plan
-
Patient Disposition: Snf/SNF
Discharge Diagnosis/Procedures: Dementia
Left acute nondisplaced oblique fracture proximal metaphysis and diaphysis of the fibula
Hypertension
Hyponatremia
Condition: Fair
Diet: Regular and Restrict fluids to 64 oz
Activity: With assistance, As tolerated and With Walker
Additional Activity: Keep Left Knee immobilizer in place, weight bearing as tolerated with Walker
Driving Restrictions: No driving
Bathing Restrictions: None
Blood Work: Please repeat CBC and BMP with primary care provider in 1 week of discharge
Others Tests: Please follow up with orthopedic in 4 weeks for repeat imaging
Other Services: PT and OT
Activity Restrictions/Additional Instructions:
Please follow up with primary care provider in 1 week of discharge and orthopedic in 4 weeks of discharge.
Atenolol has been increased from 50 mg daily to 50 mg daily and 25 mg evening for better blood pressure/heart rate control.
Ibuprofen and Tylenol recommended for pain management
Please take medications as prescribed/recommended and follow up with primary care provider and/or other healthcare provider involved in your care for refills and/or further adjustment to your medication regimen as necessary.
Referrals:
Akira Orlando MD [Family Provider] - in one week
Melody Burns PA-C [Specified Professional Personl] - in three to four weeks
Prescriptions:
New
atenolol 25 mg Tablet
25 mg PO QPM 30 Days Qty: 30 0RF
ibuprofen 400 mg Tablet
400 mg PO Q6HPRN PRN (Reason: moderate severe pain) 7 Days Qty: 28 0RF
acetaminophen 325 mg Tablet
650 mg PO Q6HPRN PRN (Reason: mild pain/THOMSON/temp> 100.4F) 7 Days Qty: 56 0RF
Continued
atenolol 25 mg tablet
50 mg PO DAILY
Discharge Orders:
Discharge Patient (As Directed); Ordered 12/01/23
Ordered By: Angel Luna
Discharge Date and Time
Print Language: LAO
[2023-12-01 15:00] VITALS: BP 160/91
== END 2023-12-01 17:00 | DRG 543 ==
LOC: 3 WEST ACU 10:41
PROVIDERS: ADMITTING PHYSICIAN Internal Medicine; ATTENDING PHYSICIAN Internal Medicine; CONSULT PHYSICIAN Orthopaedic Surgery; EMERGENCY PHYSICIAN Emergency Medicine; FAMILY PHYSICIAN Family Medicine; OTHER PHYSICIAN Physician Assistant Surgical
DX: M80.062A Age-related osteoporosis with current pathological fracture, left lower leg, initial encounter for fracture (principal); E87.1 Hypo-osmolality and hyponatremia; I10 Essential (primary) hypertension; R29.6 Repeated falls
CPT/HCPCS: 29505; 70450; 73564; 73590; 73610; 80048; 80053; 81003; 82607; 82746; 83540; 83550; 83735; 84100; 84443; 85025; 85027; 87070; 93005; 96372; 97110; 97163; 97167; 97530; 97535; 99285